=== PATIENT | female | born 1980 | race Caucasian/White ===

== ENCOUNTER 2016-08-15 18:21 | Inpatient (IN) | payer BC, OTHER ==
[2016-08-15 23:11] LABS: Hematocrit 37 % (35-47); Hemoglobin 12.9 g/dl (12.0-16.0); Mean Corpuscular HGB Conc 35 g/dl (31-36); Mean Corpuscular Hemoglobin 30 pg (27-31); Mean Corpuscular Volume 87 fL (80-97); Mean Platelet Volume 8 um3 (7.4-10.4); Red Blood Count 4.24 10^6/ul (4.0-5.4); Red Cell Distribution Width 14 % (10.5-15); White Blood Count 13.6 10^3/ul (3.5-10.8)
[2016-08-15] MEDS ORDERED: Oxytocin in LR* 20 UNITS/1,000 ML BAG IVPB ONE (23:38)
[2016-08-15] MEDS ORDERED: Oxytocin in LR* 20 UNITS/1,000 ML BAG IVPB SCH (23:45)
[2016-08-15] MEDS ORDERED: Dibucaine 1% 28.35 GM TUBE PR PRN (23:48)
[2016-08-15] MEDS ORDERED: Acetaminophen TAB* 325 MG PO PRN (23:48)
[2016-08-15] MEDS ORDERED: Witch Hazel PAD* JAR TOPICAL PRN (23:48)
[2016-08-15] MEDS ORDERED: oxyCODONE/Acetamin 5/325 MG* TAB PO PRN (23:48)
[2016-08-16] MEDS: Ibuprofen TAB* 600 MG PO PRN ×4 (01:23→20:03)
[2016-08-16 07:40] LABS: Hematocrit 35 % (35-47); Hemoglobin 11.7 g/dl (12.0-16.0); Mean Corpuscular HGB Conc 33 g/dl (31-36); Mean Corpuscular Hemoglobin 30 pg (27-31); Mean Corpuscular Volume 91 fL (80-97); Mean Platelet Volume 8 um3 (7.4-10.4); Red Blood Count 3.86 10^6/ul (4.0-5.4); Red Cell Distribution Width 14 % (10.5-15); White Blood Count 14.6 10^3/ul (3.5-10.8)
[2016-08-16] MEDS: Docusate CAP* 100 MG PO SCH ×3 (08:03→20:04)
[2016-08-16] MEDS ORDERED: Ferrous Gluconate TAB* 324 MG TAB PO SCH (09:00)
[2016-08-17] MEDS: Ibuprofen TAB* 600 MG PO PRN ×3 (03:41→15:42)
[2016-08-17 08:11] VITALS: BP 127/82
[2016-08-17] MEDS: Docusate CAP* 100 MG PO SCH ×2 (09:36→15:42)
== END 2016-08-17 16:45 | disposition home or self-care (01) | DRG 560 ==
LOC: MCHOBOUT 18:21 → MCHOB 20:51
PROVIDERS: ADMIT Nurse Practitioner; ATTEND Nurse Practitioner
PROC: 10E0XZZ Delivery of Products of Conception, External Approach (ICD-10-PCS; principal; 2016-08-15)
PROC: 4A1HX4Z Monitoring of Products of Conception, Cardiac Electrical Activity, External Approach (ICD-10-PCS; 2016-08-15)
PROC: 10907ZC Drainage of Amniotic Fluid, Therapeutic from Products of Conception, Via Natural or Artificial Opening (ICD-10-PCS; 2016-08-15)
DX: O75.89 Other specified complications of labor and delivery (principal); K64.9 Unspecified hemorrhoids; O71.82 Other specified trauma to perineum and vulva; Z37.0 Single live birth; Z3A.39 39 weeks gestation of pregnancy
CPT/HCPCS: 36415; 85025; 85027; A9270-GY